=== PATIENT | female | born 1940 | race Caucasian/White ===

== ENCOUNTER 2017-11-01 06:33 | Inpatient (IN) | payer OTHER ==
--- NOTE | 2017-10-25 11:15 | HP ---
DATE OF ADMISSION: 11/01/2017 DATE OF DICTATION: 08/22/2017 REASON FOR ADMISSION: Colon cancer. BRIEF HISTORY: This is a 77-year-old female who on routine medical screening was noted to be anemic and subsequently was referred to Dr. Mckee for a colonoscopy. At the time of colonoscopy, Dr. Mckee had noted a 4-cm sessile mass in the ascending colon. The endoscopic appearance of this mass was consistent with carcinoma and multiple biopsies were obtained. The biopsy pathology demonstrates an invasive adenocarcinoma that is moderately differentiated. Given this finding, the patient also had a CT scan performed at [facility], CT demonstrated findings consistent with an eccentric mass-like thickening in the mid ascending colon with mild focal luminal narrowing. There was no evidence of obstruction. There are no obvious liver metastases. There is no ascites noted on CAT scan. Patient has no bouts of nausea or vomiting. She has no complaints of abdominal pain. She has had no history of weight loss. PAST MEDICAL HISTORY: Significant for hypercholesterolemia, no coronary artery disease or diabetes. PAST SURGICAL HISTORY: Patient has had an open cholecystectomy. She has had an appendectomy as well as a bilateral oophorectomy. ALLERGIES: None. SOCIAL HISTORY: The patient does not smoke nor drink. MEDICATION: Avastatin and Colace. PHYSICAL EXAMINATION: Lungs: Clear. Heart: Regular rhythm. Abdomen: Mildly obese. Soft. Nontender. Nondistended. She has a large right upper quadrant scar. The appendectomy scar is not well seen. She also has very well healed oophorectomy scars, I suspect it was done laparoscopically. These are also not visible. Rectal: Deferred. IMPRESSION/PLAN: Colon cancer: This is a 77-year-old female who underwent a colonoscopy for anemia (hemoglobin of 9). The colonoscopy demonstrated a 4-cm mass in the ascending colon, biopsies consistent with a well differentiated invasive adenocarcinoma. CT scan was performed as well that demonstrated no evidence of metastatic disease. Patient will see Dr. Mckee once again for a repeat colonoscopy and tattooing. She will then subsequently be scheduled for an attempt at a laparoscopic right hemicolectomy, possible open. The indications, alternatives, complications of procedure discussed. Questions answered. Will plan to obtain written consent on the day of surgery. CRAIG BUTCHER M.D. [id number] cc: Bessie Carlson M.D. cc: Eloy Mckee M.D.
[2017-11-01] MEDS ORDERED: LACTATED RINGERS SOLUTION 1,000 ML IV SCH (08:45)
[2017-11-01] MEDS ORDERED: PEG 3350/NA SULF BICARB CL/KCL 4000 ML SOLN.RECON PO ONE (08:45)
[2017-11-01] MEDS ORDERED: ERTAPENEM SODIUM 1 GM in SODIUM CHLORIDE 50 ML IVPB SCH (08:45)
[2017-11-01] MEDS ORDERED: ELECTROLYTE-148 SOLN 1,000 ML IV SCH (14:30)
[2017-11-01 17:21] VITALS: BMI 26.2
[2017-11-01] MEDS ORDERED: PT OWN MED DRAWER 7, Y5N ONE (23:59)
[2017-11-02] MEDS ORDERED: MIDAZOLAM HCL 2 MG/2 ML SINGLE DOSE VIAL ONE (07:31)
[2017-11-02] MEDS ORDERED: ROPIVACAINE HCL 0.5% 30ML VIAL ONE (07:33)
[2017-11-02] MEDS ORDERED: PROPOFOL 20 ML ONE ×2 (07:56)
[2017-11-02] MEDS ORDERED: ROCURONIUM BROMIDE 50 MG/5 ML VIAL ONE ×2 (07:57→08:49)
[2017-11-02] MEDS ORDERED: ONDANSETRON 4 MG/2 ML VIAL IVPUSH PRN ×3 (08:01→11:02)
[2017-11-02] MEDS ORDERED: LACTATED RINGERS SOLUTION 1,000 ML IV SCH (08:15)
[2017-11-02] MEDS ORDERED: ERTAPENEM SODIUM 1 GM VIAL IVPB ONE (08:20)
[2017-11-02] MEDS ORDERED: ERTAPENEM SODIUM 1 GM VIAL ONE (08:22)
[2017-11-02] MEDS ORDERED: LIDOCAINE HCL/PF 2% SDV 5ML VIAL ONE (09:27)
[2017-11-02] MEDS ORDERED: LIDOCAINE HCL 2% JELLY (5 ML/TUBE) ONE (09:27)
[2017-11-02] MEDS ORDERED: DEXAMETHASONE SOD PHOSPHATE 4 MG/1 ML VIAL ONE (09:27)
[2017-11-02] MEDS ORDERED: NEOSTIGMINE METHYLSULFATE 0.5 MG/ML - 10 ML MDV ONE (09:42)
--- NOTE | 2017-11-02 10:39 | OP ---
Operative Note - Note: Operative Date: 11/02/17 Pre-Operative Diagnosis: colon cancer Operation: laparoscopic right colectomy, extensive lysis of adhesions Post-Operative Diagnosis: Same as Pre-op Surgeon: Evaristo Johnson Midwife: Dinh Natarajan Anesthesia: General Estimated Blood Loss (mls): 20 Operative Report Dictated: Yes
[2017-11-02] MEDS ORDERED: morphine SULFATE 4 MG/ML VIAL IVPB PRN (11:02)
[2017-11-02] MEDS: ELECTROLYTE-148 SOLN 1,000 ML IV SCH ×2 (11:40→20:36)
[2017-11-02] MEDS ORDERED: HYDROmorphone HCL CARPU-JECT 2 MG/1 ML DISP.SYRIN ONE (12:26)
[2017-11-02] MEDS: HYDROmorphone HCL CARPU-JECT 1 MG/1 ML DISP.SYRIN IVPUSH PRN ×4 (12:28→16:00)
--- NOTE | 2017-11-02 14:46 | OP ---
DATE OF OPERATION: 11/02/2017 PREOPERATIVE DIAGNOSIS: Right colon mass, suspect carcinoma. POSTOPERATIVE DIAGNOSIS: Right colon mass, suspect carcinoma. PROCEDURE: Laparoscopic right colectomy, omental patch, peritoneal lavage, extensive lysis of adhesions. SURGEON: Evaristo Butcher MD ACCOUNTS RECEIVABLE ADMINISTRATOR: Dinh Natarajan MD ANESTHESIA: Vielka Herr MD (general). ESTIMATED BLOOD LOSS: Minimal. SPECIMEN: Right colon. INDICATIONS FOR PROCEDURE: This is a 77-year-old female who in the past underwent an open appendectomy and a cholecystectomy. She underwent a routine colonoscopy due to anemia and was noted to have a 4-cm mass in the ascending colon. This area was tattooed. She is now here for definitive surgical management. OPERATIVE DICTATION: Patient was identified and appropriately positioned on the operating room table. After placement of general anesthesia, the abdomen was prepped and draped in the usual sterile fashion with ChloraPrep. A supraumbilical excision was made deep in the subcutaneous tissue. The fascia was divided sharply. The peritoneum incised under direct vision. A Veress needle followed by a structural needle were placed. Upon placement of the camera, it was obvious this patient had multiple dense adhesions in the midline of the abdomen as well as right upper quadrant and right gutter of the abdomen due to her previous surgical history. She had stomach plastered to the anterior wall of the abdomen. The camera was maneuvered in such a fashion to allow 2 ports to be placed in the left side of the abdomen, and under direct vision, an extensive lysis of adhesions of omentum, small bowel, and stomach was taken off the anterior abdominal wall. This took a good 40 minutes of the operation to do this portion of the procedure. Once the adhesions were completely taken down with LigaSure device, attention was now focused to performing the actual procedure. The right colon identified as well as the tattooed area. The right colon lifted to the anterior abdominal wall. The ileocolic pedicle identified and subsequently taken with the LigaSure device, 4 wells placed prior to complete division. The loose areolar tissue was then subsequently swept, and the colon lifted off the retroperitoneum and duodenum, and this was directed towards the right upper quadrant. The loose retroperitoneal tissue was then divided with the LigaSure device, and the subhepatic space was subsequently entered. The right colon was now mobilized off the hepatic flexure with blunt dissection and the transverse colon lifted to the anterior abdominal wall. The middle colic vessels identified along with the right and left branch. The rght branch was then subsequently divided with LigaSure device, 4 wells placed prior to complete division. The gastrocolic ligament taken with LigaSure device, as well. Once the colon was completely mobilized, attention was now focused to the right gutter. The right colon was mobilized out of the right gutter with blunt dissection along with the band that holds the terminal ileum in the right pelvis. This band was divided sharply. Once this was completely mobilized, the operative field was examined once again, noted to be hemostatic. The midline port was removed and extended to allow extraction of the colon. Wound protector placed. The area toweled and draped off. The colon brought out through the wound protector as well as the distal ileum. The proximal line of resection was chosen approximately 6 inches from the ileocecal valve, and the distal line of resection was chosen just to where the vasculature was divided. The ileum was anastomosed to the transverse colon in a functional [id number] fashion with a GI-80 3.8-mm stapler. The enterotomy closed with a TA-60 3.5-mm stapler. This was now subsequently handed off. The staple line examined, noted to be grossly intact. The bowel proximal and distal to the staple line was pink and viable without evidence of ischemia, and there was no gross evidence of staple misfire or leak. The TA staple line was then patched with a portion of the omentum along with its pedicle as an omental patch with interrupted 3-0 chromic sutures. The bowel returned to its anatomic position. The surgeon and 1st real estate executive assistant changed gloved, removed the drapes, and the area was then copiously irrigated with warm saline. The operative irrigant was retrieved and noted to be clear. The ports were now removed. Port sites were hemostatic. The fascia in the midline reapproximated with interrupted 0 PDS sutures, the subcutaneous space irrigated, and the skin closed with cedrick followed by Dermabond. At the conclusion of the case, sponge and instrument counts were correct. ATTESTATION: Brief operative note handwritten on the preprinted form. [facility] queried prior to giving any narcotics. The operative note was done in the computer. EVARISTO BUTCHER M.D. [id number] cc: Eloy Mckee MD
[2017-11-02] MEDS: oxyCODONE HCL 5 MG TABLET PO PRN (21:26)
[2017-11-03] MEDS: oxyCODONE HCL 5 MG TABLET PO PRN ×2 (04:59→13:18)
[2017-11-03] MEDS: ELECTROLYTE-148 SOLN 1,000 ML IV SCH ×3 (06:00→17:19)
[2017-11-03 08:42] LABS: HEMATOCRIT 34.5 % (32.4-45.2); HEMOGLOBIN 11.1 GM/dL (10.7-15.3); MCH 26.3 pg (25.7-33.7); MCHC 32.1 g/dl (32.0-36.0); MEAN CELL VOLUME 81.7 fl (80-96); MEAN PLT VOLUME 8.9 fl (7.5-11.1); PLATELET COUNT 277 K/MM3 (134-434); RBC 4.23 M/mm3 (3.60-5.2); RDW 15.8 % (11.6-15.6); WHITE BLOOD COUNT 8.4 K/mm3 (4.0-10.0)
[2017-11-03 08:52] LABS: CHLORIDE 103 mmol/L (98-107); POTASSIUM 4.3 mmol/L (3.5-5.1); SODIUM 137 mmol/L (136-145)
[2017-11-03] MEDS ORDERED: ERTAPENEM SODIUM 1 GM in SODIUM CHLORIDE 50 ML IVPB ONE (09:00)
[2017-11-03] MEDS: PANTOPRAZOLE SODIUM 40 MG VIAL IVPUSH SCH (09:18)
[2017-11-03 09:29] LABS: ANION GAP 11 (8-16); BLOOD UREA NITROGEN 13 mg/dL (7-18); CALCIUM 8.5 mg/dL (8.5-10.1); CO2 23 mmol/L (21-32); GLUCOSE,RANDOM 91 mg/dL (74-106); MAGNESIUM 2.5 mg/dL (1.8-2.4); PHOSPHOROUS 2.7 mg/dL (2.5-4.9)
[2017-11-03] MEDS: LACTATED RINGERS SOLUTION 1,000 ML IV SCH (11:05)
[2017-11-03 11:29] LABS: ALBUMIN 2.9 g/dl (3.4-5.0); ALK PHOS 94 U/L (45-117); BILIRUBIN,TOTAL 0.3 mg/dL (0.2-1.0); SGOT/AST 23 U/L (15-37); SGPT/ALT 32 U/L (12-78); TOT PROT 6.2 g/dl (6.4-8.2)
--- NOTE | 2017-11-03 12:41 | PN ---
Progress Note (short form) - Note Progress Note: surgery pt seen and examined. feels well. wants to go home. no pain. no flatus. afebrile abd- soft, nt, nd, incisions clean Laboratory Tests 11/03/17 07:55 WBC 8.4 A/P 1) pod#1- cont npo, cont ivf, remove biggs 2) morphine, lortab 3) prophylaxis- lovenox, protonix, finish invanz, oob, spiromter 4) colon ca- follow path
[2017-11-03 14:00] LABS: CREATININE 0.6 mg/dL (0.55-1.02)
[2017-11-03] MEDS: ENOXAPARIN NA (PORCINE) 40 MG/0.4 ML DISP.SYRIN SQ SCH (14:26)
[2017-11-03] MEDS: morphine CARPU-JECT 10 MG/1 ML DISP.SYRIN IVPB PRN ×2 (16:42→22:05)
--- NOTE | 2017-11-03 17:13 | PN ---
Progress Note, Physician Chief Complaint: Pt. pain controlled, no GA complaints. - Current Medication List Current Medications: Active Medications Enoxaparin Sodium (Lovenox -) 40 mg SQ DAILY [facility] Last Admin: 11/03/17 14:26 Dose: 40 mg Fentanyl (Sublimaze Injection -) 50 mcg IVPUSH [id number] PRN PRN Reason: PAIN Parenteral Electrolytes (Plasma-Lyte 148 -) 1,000 mls @ 100 mls/hr IV ASDIR [facility] Last Admin: 11/03/17 11:05 Dose: Not Given Lactated Ringer's (Lactated Ringers Solution) 1,000 mls @ 75 mls/hr IV ASDIR [facility] Last Admin: 11/03/17 11:05 Dose: Not Given Morphine Sulfate (Morphine Injection -) 4 mg IVPB Q3H PRN PRN Reason: FEVER Last Admin: 11/03/17 16:42 Dose: 4 mg Ondansetron HCl (Zofran Injection) 4 mg IVPUSH Q6H PRN PRN Reason: NAUSEA AND/OR VOMITING Oxycodone HCl (Roxicodone -) 7.5 mg PO Q4H PRN PRN Reason: PAIN LEVEL 1-5 Last Admin: 11/03/17 13:18 Dose: 7.5 mg Pantoprazole Sodium (Protonix Iv) 40 mg IVPUSH DAILY [facility] Last Admin: 11/03/17 09:18 Dose: 40 mg - Objective Vital Signs: Vital Signs Temperature 98.4 F 11/03/17 14:33 Pulse Rate 77 11/03/17 14:33 Respiratory Rate 18 11/03/17 06:03 Blood Pressure 155/68 11/03/17 14:33 O2 Sat by Pulse Oximetry (%) 95 11/02/17 20:58 Constitutional: Yes: Well Nourished, No Distress, Calm Musculoskeletal: Yes: WNL Neurological: Yes: WNL, Alert, Oriented ...Motor Strength: WNL Labs: CBC, BMP 11/03/17 07:55 11/03/17 07:55 Assessment/Plan POD#1 s/p Right hemicolectomy under GA. Doing well. D/C from anesthesia care.
[2017-11-04 08:10] LABS: ANION GAP 10 (8-16); BLOOD UREA NITROGEN 11 mg/dL (7-18); CALCIUM 8.4 mg/dL (8.5-10.1); CHLORIDE 102 mmol/L (98-107); CO2 29 mmol/L (21-32); GLUCOSE,RANDOM 78 mg/dL (74-106); MAGNESIUM 2.1 mg/dL (1.8-2.4); SODIUM 141 mmol/L (136-145)
[2017-11-04 08:11] LABS: CREATININE 0.6 mg/dL (0.55-1.02); PHOSPHOROUS 2.2 mg/dL (2.5-4.9)
[2017-11-04 08:20] LABS: BASO % 0.4 % (0-2.0); EOS % 0.6 % (0-4.5); HEMATOCRIT 31.5 % (32.4-45.2); HEMOGLOBIN 10.2 GM/dL (10.7-15.3); LYMPH % 10.9 % (8-40); MCH 26.3 pg (25.7-33.7); MCHC 32.3 g/dl (32.0-36.0); MEAN CELL VOLUME 81.5 fl (80-96); MEAN PLT VOLUME 8.7 fl (7.5-11.1); MONO % 9.6 % (3.8-10.2); NEUT % 78.5 % (42.8-82.8); PLATELET COUNT 260 K/MM3 (134-434); RBC 3.86 M/mm3 (3.60-5.2); RDW 15.5 % (11.6-15.6); WHITE BLOOD COUNT 7.4 K/mm3 (4.0-10.0)
[2017-11-04] MEDS: ENOXAPARIN NA (PORCINE) 40 MG/0.4 ML DISP.SYRIN SQ SCH (10:09)
[2017-11-04] MEDS: PANTOPRAZOLE SODIUM 40 MG VIAL IVPUSH SCH (10:09)
[2017-11-04] MEDS: LACTATED RINGERS SOLUTION 1,000 ML IV SCH (11:20)
[2017-11-04] MEDS: ELECTROLYTE-148 SOLN 1,000 ML IV SCH ×2 (11:21→13:18)
--- NOTE | 2017-11-04 13:53 | PN ---
Progress Note (short form) - Note Progress Note: surgery pt seen and examined. now with flatus and bm. wants food. wants to go home. voiding afebrile abd- soft, nt, nd, incisions clean Laboratory Tests 11/04/17 06:30 WBC 7.4 A/P 1) pod#2- full liquids, stop ivf 2) morphine, lortab 3) prophylaxis- lovenox, protonix, oob, spiromter 4) colon ca- follow path
--- NOTE | 2017-11-04 16:05 | PATH ---
Surgical Pathology Report Patient Name: SYDNI REYNOLDS [facility]. Rec. #: [id number] /Age/Gender: 1940 (Age: 77) / F Account: [id number] Location: [address] [place] [address] Taken: 11/02/2017 Received: 11/02/2017 Reported: 11/04/2017 Physicians: Evaristo Mckee M.D. Specimen(s) Received RIGHT HEMICOLECTOMY Clinical History Malignant neoplasm ascending colon Final Diagnosis TERMINAL ILEUM, CECUM, ASCENDING COLON, RIGHT, HEMICOLECTOMY: INVASIVE ADENOCARCINOMA, MODERATELY DIFFERENTIATED (G2). TUMOR MEASURES 2.8 X 2 CM (GROSS MEASUREMENT). TUMOR LOCATED AT RIGHT COLON. TUMOR INVADES INTO THE MUSCULARIS PROPRIA (T2). NO LYMPHOVASCULAR OR PERINEURAL INVASION IDENTIFIED. SURGICAL MARGINS ARE NEGATIVE. TWENTY THREE BENIGN LYMPH NODES (0/23). PATHOLOGIC STAGE: pT2 pN0 pMx. SEE INVASIVE SUMMARY BELOW. Comments Colorectal Carcinoma :Surgical Pathology Cancer Case Summary (Based on AJCC TNM 8 th edition) Procedure _X_ Right hemicolectomy Tumor Site _X_ Right (ascending) colon Tumor Size Greatest dimension (centimeters): 2.8 x 2 cm Macroscopic Tumor Perforation _X_ Not identified Histologic Type _X_ Adenocarcinoma Histologic Grade _X_ G2: Moderately differentiated Tumor Extension _X_ Tumor invades muscularis propria Margins _X__ All margins are uninvolved by invasive carcinoma, high-grade dysplasia, intramucosal adenocarcinoma, and adenoma Margins examined: Proximal, distal, radial Treatment Effect _X_ No known presurgical therapy Lymphovascular Invasion _X_ Not identified Perineural Invasion _X_ Not identified Tumor Deposits _X_ Not identified Regional Lymph Nodes Lymph Node Examination Number of Lymph Nodes Involved: 0 Number of Lymph Nodes Examined: 23 Pathologic Stage Classification (pTNM, AJCC 8th Edition) Primary Tumor (pT) _X_ pT2: Tumor invades the muscularis propria Regional Lymph Nodes (pN) _X_ pN0: No regional lymph node metastasis Electronically Signed Fely Nelson M.D. Gross Description Received in formalin labeled "right hemicolectomy," is a 3 cm in length portion of terminal ileum with an attached 18 cm in length portion of cecum and right colon. The specimen displays 2 open mucosal margins as well as abundant attached pericolonic adipose tissue. The serosa is kay bishop and smooth. There is no appendix identified. The mucosa displays a 2.8 x 2.0 cm kay, centrally ulcerated, polypoid mass in the right colon, 5 cm distal to the ileocecal valve. The mass is 3 cm from the mesenteric margin of resection. The mass invades through the muscularis. No invasion through the serosa or into the pericolonic adipose tissue is identified. The remaining mucosa is kay with normal folds. Sectioning of the pericolonic adipose tissue reveals multiple kay, irregular lymph nodes. Phlebotomy Program Coordinator sections are submitted in 20 cassettes as follows: 1-proximal mucosal margin of resection; 2-distal mucosal margin of resection; 3-shave of mesenteric margin; 6-8-zdfragpj submitted mass; 10-uninvolved terminal ileum; 11-uninvolved distal right colon; 12-one whole trisected lymph node; 13-15-one whole bisected lymph node each; 60-49-ouamsiko whole lymph nodes each. 11/03/2017 saudi11/03/2017
[2017-11-05 08:26] VITALS: BP 153/79; PULSE 87; TEMP 98
[2017-11-05 08:40] LABS: BASO % 0.4 % (0-2.0); EOS % 0.7 % (0-4.5); HEMATOCRIT 36.4 % (32.4-45.2); HEMOGLOBIN 11.9 GM/dL (10.7-15.3); MCH 26.4 pg (25.7-33.7); MCHC 32.7 g/dl (32.0-36.0); MEAN CELL VOLUME 80.9 fl (80-96); MEAN PLT VOLUME 8.6 fl (7.5-11.1); MONO % 6.8 % (3.8-10.2); NEUT % 81.1 % (42.8-82.8); PLATELET COUNT 327 K/MM3 (134-434); RBC 4.49 M/mm3 (3.60-5.2); RDW 15.5 % (11.6-15.6); WHITE BLOOD COUNT 7.1 K/mm3 (4.0-10.0)
[2017-11-05] MEDS: ENOXAPARIN NA (PORCINE) 40 MG/0.4 ML DISP.SYRIN SQ SCH (10:39)
[2017-11-05] MEDS: PANTOPRAZOLE SODIUM 40 MG VIAL IVPUSH SCH (10:39)
--- NOTE | 2017-11-05 11:55 | DS ---
DATE OF ADMISSION: 11/01/2017 DATE OF DISCHARGE: 11/05/2017 FINAL DIAGNOSIS: Right colon cancer. PROCEDURE: Laparoscopic right colectomy. CONDITION ON DISCHARGE: Stable. HISTORY: This is a 77-year-old woman who was identified as having an ascending colon neoplasia after she was found to be anemic. Patient was admitted to the hospital with formal bowel prep and underwent a subsequent laparoscopic right hemicolectomy on 11/02/2017. Her postoperative course has been uneventful. She is ambulating in the hallways. She has had a bowel movement. She is passing gas freely. She is tolerating full liquids. PHYSICAL EXAMINATION: Abdomen: Soft and nontender. Trocar sites and wound site clean. IMPRESSION: No contraindication to discharge home. Discharge instructions given verbally. Patient told to remain on a liquid diet for the next several days. She has help at home with her daughter. She will follow up with Dr. Hopkins in the not too distant future. NAGA LUONG M.D. [id number]
== END 2017-11-05 13:50 | disposition home or self-care (01) | DRG 331 ==
LOC: J7W 06:33 → EDSTATUS 10:00 → JSAMEDAYSX 11-02 10:25 → J6S 11-02 18:20
PROVIDERS: ADMIT Surgery; ATTEND Surgery
PROC: 0DNW4ZZ Release Peritoneum, Percutaneous Endoscopic Approach (ICD-10-PCS; 2017-11-02)
PROC: 3E1M38Z Irrigation of Peritoneal Cavity using Irrigating Substance, Percutaneous Approach (ICD-10-PCS; 2017-11-02)
PROC: 0DBK4ZZ Excision of Ascending Colon, Percutaneous Endoscopic Approach (ICD-10-PCS; principal; 2017-11-02 08:00)
DX: C18.2 Malignant neoplasm of ascending colon (principal); K66.0 Peritoneal adhesions (postprocedural) (postinfection); D64.9 Anemia, unspecified
CPT/HCPCS: 36415; 80048; 80053; 83735; 84100; 85025; 85027; 88309-TC; 94010; 94760